=== PATIENT | female | born 1970 | race Caucasian/White ===

== ENCOUNTER 2021-04-22 14:42 | Emergency (ER) | payer OTHER ==
[~2021-04-22] VITALS: Ht 157.5 cm; Wt 59.0 kg
[~2021-04-22 14:42] MED LIST: ORTHO-CEPT1 TAB PO
== END 2021-04-22 19:02 | disposition home or self-care (01) ==
LOC: ER 14:42
DX: Z03.818 Encounter for observation for suspected exposure to other biological agents ruled out (principal); J02.8 Acute pharyngitis due to other specified organisms

== ENCOUNTER 2022-04-19 07:48 | Outpatient (CLI) | payer OTHER | END 2022-04-19 07:59 | disposition home or self-care (01) | LOC: MAMO-SONO 07:48 | PROVIDERS: ATTEND Obstetrics & Gynecology Gynecology | DX: Z12.31 Encounter for screening mammogram for malignant neoplasm of breast (principal); N60.11 Diffuse cystic mastopathy of right breast; N60.12 Diffuse cystic mastopathy of left breast ==

== ENCOUNTER 2023-01-24 07:37 | Outpatient (CLI) | payer OTHER | END 2023-01-24 07:45 | disposition home or self-care (01) | LOC: SONOGRAMA 07:37 | PROVIDERS: ATTEND Obstetrics & Gynecology Gynecology | DX: R10.2 Pelvic and perineal pain (principal) ==

== ENCOUNTER 2024-05-06 09:58 | Outpatient (CLI) | payer OTHER | END 2024-05-06 10:20 | disposition home or self-care (01) | LOC: MAMO-SONO 09:58 | PROVIDERS: ATTEND Obstetrics & Gynecology Gynecology | DX: N60.11 Diffuse cystic mastopathy of right breast (principal); N60.12 Diffuse cystic mastopathy of left breast; D25.1 Intramural leiomyoma of uterus; R10.2 Pelvic and perineal pain ==

== ENCOUNTER 2025-05-18 07:43 | Outpatient (CLI) | payer OTHER | END 2025-05-18 07:45 | disposition home or self-care (01) | LOC: MAMO-SONO 07:43 | PROVIDERS: ATTEND Obstetrics & Gynecology Gynecology | DX: N60.11 Diffuse cystic mastopathy of right breast (principal); N60.12 Diffuse cystic mastopathy of left breast ==

== ENCOUNTER 2025-06-09 07:07 | Outpatient (CLI) | payer OTHER | END 2025-06-09 07:15 | disposition home or self-care (01) | LOC: SONOGRAMA 07:07 | PROVIDERS: ATTEND Obstetrics & Gynecology Gynecology | DX: K76.0 Fatty (change of) liver, not elsewhere classified (principal) ==